=== PATIENT | female | born 1950 | race Caucasian/White ===

== ENCOUNTER 2016-07-07 21:32 | Inpatient (IN) | payer OTHER ==
[~2016-07-07] VITALS: Ht 157.5 cm; Wt 143.5 kg
[~2016-07-07 21:32] MED LIST: AZITHROMYCIN250 MG PO; AZITHROMYCIN250 MG1 PO; BYSTOLIC10 MG PO; CEFTIN500 MG PO; CLEOCIN300 MG PO; CYMBALTA30 MG PO; ERGOCALCIF50000 UNIT PO; FEROSUL325 MG PO; HEPARIN SO5000 UNITS SC; HYDROCHLOROT TAB 25M PO; HYDRODIURIL,ORE25 MG PO; KETOCONAZOLE60 GM TP; KLOR-CON M1010 MEQ PO; LASIX20 MG PO; LEVO-T200 MCG PO; LEVOFLOXACIN500 MG; MEDROL DOSEPAK4 MG PO; NORVASC5 MG PO; PREDNISONE20 MG PO; PROAIR HFA8.5 GM IH; PROVENTIL,200 INHALA; RAYOS5 MG PO; SENSIPAR PO; SENSIPAR30 MG PO; SYNTHROID175 MCG PO; TYLENOL REGULA325 MG PO; TYLENOL WITH C1 EACH PO; ULORIC40 MG PO; ULTRAM50 MG PO; VALACYCLOVIR500 MG PO; VITAMIN D-32000 UNI1 PO; VITAMIN D250000 UNIT PO; ZOFRAN4 MG PO
[2016-07-07 22:24] LABS: HEMATOCRIT 39.8 % (36.0-46.0); MCH 24.8 PG (29.0-34.0); MCHC 30.4 G/DL (30.0-36.0); MCV 81.6 FL (83-99); MEAN PLAT.VOLUME 10.6 uM^3 (9.5-12.4); PLATELET COUNT 310 K/uL (156-360); RBC DIS.WIDTH-CV 15.6 % (11.8-14.6); RBC DIS.WIDTH-SD 46.4 % (39-53); RED BLOOD COUNT 4.88 M/uL (3.80-5.20); WHITE BLOOD COUNT 7.7 K/uL (4.1-10.2)
[2016-07-07 22:35] LABS: CHLORIDE 103 mEq/L (99-109); POTASSIUM 4.8 mEq/L (3.7-5.4); SODIUM 142 mEq/L (136-147)
[2016-07-07 22:36] LABS: GLUCOSE 127 mg/dL (70-99)
[2016-07-07 22:38] LABS: ANION GAP 13 MEQ/L (2-14)
[2016-07-07 22:40] LABS: GFR ESTIMATE (CALCULATED) 48 mL/min/
[2016-07-07 22:41] LABS: UREA NITROGEN (BUN) 24 mg/dL (9-23)
[2016-07-07 22:45] LABS: TROP-I INTERPRETATION NEGATIVE; TROPONIN-I < 0.01 ng/mL (0.0-0.30)
[2016-07-07 23:31] LABS: D-DIMER ELISA 0.41 mg/L FEU (< 0.57)
[2016-07-07] MEDS ORDERED: PREDNISONE5 MG PO (23:51)
[2016-07-07] MEDS ORDERED: VITAMIN D2000 UNIT PO (23:52)
[2016-07-07] MEDS ORDERED: ALBUTEROL2.5 MG/3 M IH (23:52)
[2016-07-08 03:18] LABS: ADD MIUA? YES; BILIRUBIN NEGATIVE; BLOOD MODERATE; COLOR YELLOW ((YELLOW)); GLUCOSE (STRIP) NEGATIVE; KETONES NEGATIVE; LEUKOCYTES LARGE; NITRITE POSITIVE; PROTEIN (STRIP) 30; SPECIFIC GRAVITY 1.016 (1.000-1.030); UROBILINOGEN 0.2 MG/DL (0.2-1.0)
[2016-07-08 03:43] LABS: BACTERIA 3+ /HPF; EPITHELIAL CELLS RARE /HPF; MUCUS NONE SEEN /LPF; RED BLOOD CELLS 15-20 /HPF (0-5); UCUL ADDED? YES; WHITE BLOOD CELLS TNTC /HPF (0-5)
[2016-07-08 04:20] VITALS: BP 172/81
[2016-07-08 05:39] VITALS: BP 131/78
[2016-07-08 05:49] LABS: ALKALINE PHOSPHATASE 106 IU/L (3-129); ANION GAP 7 MEQ/L (2-14); CHLORIDE 103 MEQ/L (99-109); GFR ESTIMATE (CALCULATED) 59 mL/min/; GLUCOSE 160 mg/dL (70-99); POTASSIUM 4.7 MEQ/L (3.7-5.4); SAMPLE HEMOLYSIS CHECK 0; SAMPLE ICTERIC CHECK 0; SAMPLE LIPEMIA CHECK 0; SODIUM 137 MEQ/L (136-147); TOTAL BILIRUBIN 0.3 MG/DL (0.0-1.0); UREA NITROGEN (BUN) 22 mg/dL (9-23)
[2016-07-08 05:52] LABS: TROP-I INTERPRETATION NEGATIVE; TROPONIN-I < 0.01 ng/mL (0.0-0.30)
[2016-07-08 05:56] LABS: HEMATOCRIT 37.6 % (36.0-46.0); MCHC 29.3 G/DL (30.0-36.0); MCV 82.1 FL (83-99); MEAN PLAT.VOLUME 10.5 uM^3 (9.5-12.4); PLATELET COUNT 260 K/uL (156-360); RBC DIS.WIDTH-CV 15.4 % (11.8-14.6); RBC DIS.WIDTH-SD 46.7 % (39-53); RED BLOOD COUNT 4.58 M/uL (3.80-5.20); WHITE BLOOD COUNT 6.8 K/uL (4.1-10.2)
[2016-07-08 07:17] LABS: Estimated Average Glucose 117 mg/dL (70-123); HEMOGLOBIN A1c (GLYCOHEMOGLOB) 5.7 % HGB (Below 5.7)
[2016-07-08 11:23] LABS: TROP-I INTERPRETATION NEGATIVE; TROPONIN-I < 0.01 ng/mL (0.0-0.30)
[2016-07-08 12:11] VITALS: BP 119/73
[2016-07-08 16:00] VITALS: BP 136/63
[2016-07-08 19:35] VITALS: BP 141/65
[2016-07-08 23:50] VITALS: BP 153/73
[2016-07-09 03:58] VITALS: BP 151/75
[2016-07-09 06:50] LABS: EOSINOPHIL (%) 0 % (0-5); HEMATOCRIT 34.5 % (36.0-46.0); IMMATURE GRANULOCYTE (%) 0.9 % (0.0-0.7); IMMATURE GRANULOCYTE COUNT 0.1 K/uL; INSTRUMENT ABS NEUTROPHIL CT 6.2 K/uL; LYMPHOCYTE COUNT 1.3 K/uL (1.0-2.8); MCH 24.5 PG (29.0-34.0); MCHC 29.9 G/DL (30.0-36.0); MCV 81.9 FL (83-99); MEAN PLAT.VOLUME 10.6 uM^3 (9.5-12.4); MONOCYTE (%) 3.4 % (3-12); MONOCYTE COUNT 0.3 K/uL (0-0.8); NEUTROPHIL (%) 78.9 % (45-76); NEUTROPHIL COUNT 6.2 K/uL (1.8-6.4); PLATELET COUNT 255 K/uL (156-360); RBC DIS.WIDTH-CV 15.8 % (11.8-14.6); RBC DIS.WIDTH-SD 46.6 % (39-53); RED BLOOD COUNT 4.21 M/uL (3.80-5.20); WHITE BLOOD COUNT 7.9 K/uL (4.1-10.2)
[2016-07-09 07:16] LABS: ANION GAP 9 MEQ/L (2-14); CHLORIDE 104 MEQ/L (99-109); GFR ESTIMATE (CALCULATED) 48 mL/min/; GLUCOSE 178 mg/dL (70-99); POTASSIUM 4.7 MEQ/L (3.7-5.4); SAMPLE HEMOLYSIS CHECK 0; SAMPLE ICTERIC CHECK 0; SAMPLE LIPEMIA CHECK 0; SODIUM 139 MEQ/L (136-147); UREA NITROGEN (BUN) 30 mg/dL (9-23)
[2016-07-09 09:28] VITALS: BP 123/72
[2016-07-09 11:01] VITALS: BP 148/71
[2016-07-09 15:00] VITALS: BP 138/74
[2016-07-09] MEDS ORDERED: BYSTOLIC5 MG PO (16:57)
[2016-07-09] MEDS ORDERED: KEFLEX500 MG PO (16:59)
[2016-07-09] MEDS ORDERED: ROBITUSSIN100 MG/5 M PO (17:02)
[2016-07-09] MEDS ORDERED: PREDNISONE10 M1 PO (17:20)
== END 2016-07-09 17:52 | disposition home or self-care (01) | DRG 191 ==
LOC: EME 21:32 → EDOF 07-08 01:26 → 4EAST 07-08 01:26
PROVIDERS: Emergency Medicine; Internal Medicine; Student in an Organized Health Care Education/Training Program
DX: J44.0 Chronic obstructive pulmonary disease with (acute) lower respiratory infection (principal); N39.0 Urinary tract infection, site not specified; J44.1 Chronic obstructive pulmonary disease with (acute) exacerbation; N17.9 Acute kidney failure, unspecified; Z68.43 Body mass index [BMI] 50.0-59.9, adult; J20.9 Acute bronchitis, unspecified; F32.9 Major depressive disorder, single episode, unspecified; E03.9 Hypothyroidism, unspecified; E21.3 Hyperparathyroidism, unspecified; I10 Essential (primary) hypertension; E11.9 Type 2 diabetes mellitus without complications; I87.2 Venous insufficiency (chronic) (peripheral); E66.01 Morbid (severe) obesity due to excess calories; B96.20 Unspecified Escherichia coli [E. coli] as the cause of diseases classified elsewhere; B96.4 Proteus (mirabilis) (morganii) as the cause of diseases classified elsewhere; G47.33 Obstructive sleep apnea (adult) (pediatric); E79.0 Hyperuricemia without signs of inflammatory arthritis and tophaceous disease; D35.02 Benign neoplasm of left adrenal gland; Z96.653 Presence of artificial knee joint, bilateral
CPT/HCPCS: 71020; 71250; 80048; 80053; 81003; 83036; 83605; 83880; 84439; 84443; 84484; 85025; 85027; 85379; 87040; 87070; 87077; 87086; 87186; 87205; 87651 90; 93005; 94640; 94640 76; 99202; 99281; 99285; J0696; J1100; J1644; J2930; J7030; J7050

== ENCOUNTER 2016-08-05 20:22 | Inpatient (IN) | payer OTHER ==
[~2016-08-05] VITALS: Ht 157.5 cm; Wt 145.0 kg
[~2016-08-05 20:22] MED LIST changes: +ALBUTEROL2.5 MG/3 M IH; +BYSTOLIC5 MG PO; +KEFLEX500 MG PO; +PREDNISONE10 M1 PO; +PREDNISONE5 MG PO; +ROBITUSSIN100 MG/5 M PO; +VITAMIN D2000 UNIT PO
[2016-08-05 20:52] LABS: HEMATOCRIT 38.1 % (36.0-46.0); MCH 24.8 PG (29.0-34.0); MCHC 30.2 G/DL (30.0-36.0); MCV 82.3 FL (83-99); MEAN PLAT.VOLUME 9.3 uM^3 (9.5-12.4); PLATELET COUNT 373 K/uL (156-360); RBC DIS.WIDTH-CV 16.7 % (11.8-14.6); RBC DIS.WIDTH-SD 49.5 % (39-53); RED BLOOD COUNT 4.63 M/uL (3.80-5.20); WHITE BLOOD COUNT 13.4 K/uL (4.1-10.2)
[2016-08-05 20:57] LABS: CHLORIDE 104 mEq/L (99-109); POTASSIUM 3.9 mEq/L (3.7-5.4); SODIUM 141 mEq/L (136-147)
[2016-08-05 20:59] LABS: GLUCOSE 104 mg/dL (70-99)
[2016-08-05 21:00] LABS: ANION GAP 13 MEQ/L (2-14)
[2016-08-05 21:03] LABS: GFR ESTIMATE (CALCULATED) 40 mL/min/; UREA NITROGEN (BUN) 17 mg/dL (9-23)
[2016-08-05 21:09] LABS: TROP-I INTERPRETATION NEGATIVE; TROPONIN-I 0.01 ng/mL (0.0-0.30)
[2016-08-05 21:19] LABS: INTER. NORMALIZED RATIO 1.1; PROTHROMBIN TIME 11.4 (9.2-11.2); PTT 27.5 (25-32)
[2016-08-05] MEDS ORDERED: KEFLEX500 MG PO (21:34)
[2016-08-05] MEDS ORDERED: LEVO-T100 MCG PO (21:35)
[2016-08-05] MEDS ORDERED: AMMONIUM LACTA140 GM TP (21:36)
[2016-08-06] VITALS (8 sets, daily range): BP systolic 87–120; BP diastolic 51–72
[2016-08-06 04:08] LABS: INTER. NORMALIZED RATIO 1.1; PROTHROMBIN TIME 11.7 (9.2-11.2); PTT 35.8 (25-32)
[2016-08-06 07:10] LABS: HEMATOCRIT 33.7 % (36.0-46.0); MCH 24.6 PG (29.0-34.0); MCHC 29.7 G/DL (30.0-36.0); MCV 82.8 FL (83-99); MEAN PLAT.VOLUME 10.7 uM^3 (9.5-12.4); PLATELET COUNT 312 K/uL (156-360); RBC DIS.WIDTH-CV 16.9 % (11.8-14.6); RBC DIS.WIDTH-SD 50.2 % (39-53); RED BLOOD COUNT 4.07 M/uL (3.80-5.20); WHITE BLOOD COUNT 11.3 K/uL (4.1-10.2)
[2016-08-06 07:31] LABS: ANION GAP 11 MEQ/L (2-14); CHLORIDE 106 MEQ/L (99-109); POTASSIUM 4.2 MEQ/L (3.7-5.4); SAMPLE HEMOLYSIS CHECK 0; SAMPLE ICTERIC CHECK 0; SAMPLE LIPEMIA CHECK 0; SODIUM 142 MEQ/L (136-147)
[2016-08-06 07:37] LABS: GFR ESTIMATE (CALCULATED) 40 mL/min/; GLUCOSE 117 mg/dL (70-99); UREA NITROGEN (BUN) 19 mg/dL (9-23)
[2016-08-06 07:40] LABS: TROP-I INTERPRETATION NEGATIVE; TROPONIN-I 0.01 ng/mL (0.0-0.30)
[2016-08-06 08:53] LABS: MAGNESIUM 1.3 mg/dl (1.3-2.7)
[2016-08-06 14:59] LABS: TROP-I INTERPRETATION NEGATIVE; TROPONIN-I < 0.01 ng/mL (0.0-0.30)
[2016-08-07 05:39] VITALS: BP 98/53
[2016-08-07 07:13] VITALS: BP 124/60
[2016-08-07 07:54] LABS: HEMATOCRIT 31.1 % (36.0-46.0); MCH 24.4 PG (29.0-34.0); MCHC 29.6 G/DL (30.0-36.0); MCV 82.5 FL (83-99); MEAN PLAT.VOLUME 10.4 uM^3 (9.5-12.4); NRBC (%) 0.2 /100 WBC (0-0); PLATELET COUNT 272 K/uL (156-360); RBC DIS.WIDTH-CV 17.1 % (11.8-14.6); RBC DIS.WIDTH-SD 50.7 % (39-53); RED BLOOD COUNT 3.77 M/uL (3.80-5.20); WHITE BLOOD COUNT 9.2 K/uL (4.1-10.2)
[2016-08-07] MEDS ORDERED: ELIQUIS5 MG PO (08:09)
[2016-08-07 08:16] LABS: ANION GAP 8 MEQ/L (2-14); CHLORIDE 107 MEQ/L (99-109); GFR ESTIMATE (CALCULATED) 48 mL/min/; GLUCOSE 123 mg/dL (70-99); POTASSIUM 4.4 MEQ/L (3.7-5.4); SAMPLE HEMOLYSIS CHECK 0; SAMPLE ICTERIC CHECK 0; SAMPLE LIPEMIA CHECK 0; SODIUM 138 MEQ/L (136-147); UREA NITROGEN (BUN) 18 mg/dL (9-23)
[2016-08-07 08:19] LABS: MAGNESIUM 1.7 mg/dl (1.3-2.7)
[2016-08-07] MEDS ORDERED: CARDIZEM60 MG PO (11:50)
== END 2016-08-07 12:39 | disposition home or self-care (01) | DRG 309 ==
LOC: EME 20:22 → EDOF 22:48 → 4EAST 23:35
PROVIDERS: Emergency Medicine; Hospitalist; Internal Medicine
DX: I48.91 Unspecified atrial fibrillation (principal); L03.116 Cellulitis of left lower limb; L03.115 Cellulitis of right lower limb; F32.9 Major depressive disorder, single episode, unspecified; E03.9 Hypothyroidism, unspecified; I10 Essential (primary) hypertension; J44.9 Chronic obstructive pulmonary disease, unspecified; G47.33 Obstructive sleep apnea (adult) (pediatric); M10.9 Gout, unspecified; Z96.653 Presence of artificial knee joint, bilateral; E11.9 Type 2 diabetes mellitus without complications; E21.3 Hyperparathyroidism, unspecified; E66.01 Morbid (severe) obesity due to excess calories; Z88.1 Allergy status to other antibiotic agents; Z68.43 Body mass index [BMI] 50.0-59.9, adult; J45.909 Unspecified asthma, uncomplicated
CPT/HCPCS: 71010; 80048; 83735; 84439; 84443; 84484; 85027; 85610; 85730; 93005; 99202; 99281; 99285; J3475; J7030; J7050